=== PATIENT | female | born 2000 | race African-American/Black ===

== ENCOUNTER 2021-01-13 09:26 | Emergency (ER) | payer OTHER ==
[2021-01-13 10:54] LABS: #Eosinphils 0.1 10x3/uL (0.0-0.5); #Monocytes 1.3 10x3/uL (0.0-1.1); #Neutrophils 10.2 10x3/uL (1.5-8.4); %Basophils 0.3 % (0.0-2.0); %Monocytes 10.2 % (0.0-10.0); %Neutrophils 81.8 % (40.0-75.0); Hemoglobin 14.4 g/dL (12.0-15.5); Mean Corpuscular Hemoglobin 27.4 pg (27.0-33.0); Mean Corpuscular Volume 88.2 fl (81.6-98.3); Mean Platelet Volume 11.4 fl (7.4-10.4); Platelet Count 234 10x3/uL (150-450); RBC Distribution Width 15.9 % (11.5-14.5); Red Blood Cell (RBC) Count 5.26 10x6/uL (3.90-5.03); White Blood Cell (WBC) Count 12.5 10x3/uL (3.5-10.5)
[2021-01-13 11:22] LABS: ALT (SGPT) 26 U/L (8-55); AST (SGOT) 17 U/L (5-34); Albumin 3.7 g/dL (3.5-5.0); Alkaline Phosphatase 148 U/L (40-110); Anion Gap 10 mmol/L (10-20); BUN (Urea Nitrogen) 5 mg/dL (7.0-18.7); Bilirubin, Total 0.9 mg/dL (0.2-1.2); CK (CPK) 66 U/L (29-168); CRP (Inflammatory) 2.38 mg/dL (= or < 0.5); Calc. Creatinine Clearance 0 mL/min (70-130); Calcium 10.4 mg/dL (7.8-10.44); Carbon Dioxide 23 mmol/L (22-29); Chloride 112 mmol/L (98-107); Glucose 88 mg/dL (70-105); Protein, Total 6.7 g/dL (6.0-8.3); Sodium 141 mmol/L (136-145)
[2021-01-13 12:06] LABS: Bilirubin Neg (Negative); Blood, Urine Negative (Negative); Clarity Slightly Cloudy (Clear); Glucose, Urine (Dipstick) 50 mg/dL (Negative); Ketone, Urine Negative (Negative); Leukocyte 25 (Negative); Nitrite Positive (Negative); Protein, Urine (Dipstick) Negative (Neg-Trace); Urobilinogen Normal mg/dL (Less than 2)
[2021-01-13 12:10] LABS: Pregnancy Test - Urine (BHCG) Negative (Negative); Pregu Control Background? CLEAR/WHITE (CLR/WHITE); Pregu Control Bar Appear? YES (CONTROL BAR)
[2021-01-13 12:20] LABS: Bacteria/HPF 3+ HPF (None Seen); RBC/HPF 0-3 HPF (0-3); Squamous Epithelial 0-3 HPF (0-3)
[2021-01-13] MEDS ORDERED: Ketorolac Tromethamine 30 MG/ML VIAL ONE (12:31)
== END 2021-01-13 13:31 | disposition home or self-care (01) ==
LOC: CSHERS 09:26
DX: N39.0 Urinary tract infection, site not specified (principal); J45.909 Unspecified asthma, uncomplicated; F17.210 Nicotine dependence, cigarettes, uncomplicated
CPT/HCPCS: 80053; 81003; 81015; 81025; 82550; 85025; 86140; 96374; J1885

== ENCOUNTER 2021-01-15 22:33 | Emergency (ER) | payer OTHER ==
[2021-01-16] MEDS ORDERED: Ketorolac Tromethamine 30 MG/ML VIAL ONE (00:10)
== END 2021-01-16 00:34 | disposition home or self-care (01) ==
LOC: CSHERS 22:33
DX: G56.03 Carpal tunnel syndrome, bilateral upper limbs (principal); F17.210 Nicotine dependence, cigarettes, uncomplicated
CPT/HCPCS: 96372; 99281; J1885

== ENCOUNTER 2021-11-29 18:26 | Emergency (ER) | payer OTHER | END 2021-11-29 20:32 | disposition home or self-care (01) | LOC: CSHERS 18:26 | DX: S00.412A Abrasion of left ear, initial encounter (principal); F17.210 Nicotine dependence, cigarettes, uncomplicated; X58.XXXA Exposure to other specified factors, initial encounter | CPT/HCPCS: 99282 ==

== ENCOUNTER 2022-04-04 17:58 | Emergency (ER) | payer OTHER ==
[2022-04-04 18:48] LABS: #Basophils 0.1 10x3/uL (0.0-0.2); #Eosinphils 0.1 10x3/uL (0.0-0.5); #Monocytes 1.3 10x3/uL (0.0-1.1); %Basophils 0.5 % (0.0-2.0); %Eosinophils 0.4 % (0.0-6.0); %Lymphocytes 12.7 % (18.0-47.0); %Monocytes 9.9 % (0.0-10.0); %Neutrophils 75.4 % (40.0-75.0); Hemoglobin 11.9 g/dL (12.0-15.5); Mean Corpuscular HGB CONC 31.6 g/dL (32.0-36.0); Mean Corpuscular Hemoglobin 24.6 pg (27.0-33.0); Mean Corpuscular Volume 77.8 fl (81.6-98.3); Mean Platelet Volume 10.1 fl (7.4-10.4); Platelet Count 258 10x3/uL (150-450); RBC Distribution Width 19.7 % (11.5-14.5); Red Blood Cell (RBC) Count 4.83 10x6/uL (3.90-5.03); White Blood Cell (WBC) Count 13.3 10x3/uL (3.5-10.5)
[2022-04-04 18:55] LABS: BHCG - Serum Negative (NEGATIVE); Pregs Control Background? CLEAR/WHITE (CLR/WHITE); Pregs Control Bar Appear? YES (CONTROL BAR)
[2022-04-04 19:03] LABS: ALT (SGPT) 31 U/L (8-55); AST (SGOT) 20 U/L (5-34); Albumin 3.6 g/dL (3.5-5.0); Alkaline Phosphatase 105 U/L (40-110); Anion Gap 9 mmol/L (10-20); BUN (Urea Nitrogen) 4 mg/dL (7.0-18.7); Bilirubin, Total 0.7 mg/dL (0.2-1.2); Calc. Creatinine Clearance 0 mL/min (70-130); Calcium 10.2 mg/dL (7.8-10.44); Carbon Dioxide 26 mmol/L (22-29); Chloride 109 mmol/L (98-107); Estimated GFR 110; Globulin 2.2 g/dL (2.4-3.5); Glucose 108 mg/dL (70-105); Lipase 41 U/L (8-78); Potassium 3.9 mmol/L (3.5-5.1); Protein, Total 5.8 g/dL (6.0-8.3); Sodium 140 mmol/L (136-145)
[2022-04-04] MEDS ORDERED: Ondansetron ODT 4 MG TAB ONE (19:08)
[2022-04-04] MEDS ORDERED: Dicyclomine 20 MG TAB ONE (19:09)
[2022-04-04] MEDS ORDERED: Dicyclomine 20 MG/2 ML VIAL ONE (19:17)
[2022-04-04 19:56] LABS: Bilirubin Neg (Negative); Blood, Urine Negative (Negative); Clarity Clear (Clear); Glucose, Urine (Dipstick) 50 mg/dL (Negative); Ketone, Urine Negative (Negative); Leukocyte 500 (Negative); Nitrite Negative (Negative); Protein, Urine (Dipstick) Negative (Neg-Trace); Urobilinogen Normal mg/dL (Less than 2)
[2022-04-04 20:03] LABS: Bacteria/HPF Rare-Few HPF (None Seen); RBC/HPF 0-3 HPF (0-3)
== END 2022-04-04 20:30 | disposition home or self-care (01) ==
LOC: CSHERS 17:58
DX: N39.0 Urinary tract infection, site not specified (principal); F17.210 Nicotine dependence, cigarettes, uncomplicated
CPT/HCPCS: 36415; 80053; 81003; 81015; 83690; 84703; 85025; 87077; 87086; 96372; 99284; Q0162

== ENCOUNTER 2023-04-20 19:48 | Emergency (ER) | payer OTHER ==
[2023-04-20 20:46] LABS: #Eosinphils 0.1 10x3/uL (0.0-0.5); #Monocytes 0.9 10x3/uL (0.0-1.1); #Neutrophils 8.5 10x3/uL (1.5-8.4); %Basophils 0.4 % (0.0-2.0); %Eosinophils 1.2 % (0.0-6.0); %Lymphocytes 10.9 % (18.0-47.0); %Monocytes 8.1 % (0.0-10.0); %Neutrophils 78.7 % (40.0-75.0); Hematocrit 36.5 % (34.9-44.5); Hemoglobin 10.6 g/dL (12.0-15.5); Mean Corpuscular Hemoglobin 22.4 pg (27.0-33.0); Mean Corpuscular Volume 77.2 fl (81.6-98.3); Mean Platelet Volume 10.7 fl (7.4-10.4); Platelet Count 296 10x3/uL (150-450); RBC Distribution Width 19.7 % (11.5-14.5); Red Blood Cell (RBC) Count 4.73 10x6/uL (3.90-5.03); White Blood Cell (WBC) Count 10.8 10x3/uL (3.5-10.5)
[2023-04-20 20:50] LABS: BHCG - Serum Negative (NEGATIVE); Pregs Control Bar Appear? YES (CONTROL BAR)
[2023-04-20 20:51] LABS: Pregs Control Background? CLEAR/WHITE (CLR/WHITE)
[2023-04-20 20:58] LABS: ALT (SGPT) 17 U/L (8-55); AST (SGOT) 12 U/L (5-34); Albumin 3.8 g/dL (3.5-5.0); Alkaline Phosphatase 105 U/L (40-110); Anion Gap 11 mmol/L (10-20); BUN (Urea Nitrogen) 9 mg/dL (7.0-18.7); Bilirubin, Total 0.5 mg/dL (0.2-1.2); CK (CPK) 41 U/L (29-168); Calc. Creatinine Clearance 0 mL/min (70-130); Calcium 11.2 mg/dL (7.8-10.44); Carbon Dioxide 23 mmol/L (22-29); Chloride 112 mmol/L (98-107); Estimated GFR 97; Globulin 2.8 g/dL (2.4-3.5); Glucose 128 mg/dL (70-105); Magnesium 2.2 mg/dL (1.6-2.6); Potassium 3.1 mmol/L (3.5-5.1); Protein, Total 6.6 g/dL (6.0-8.3); Sodium 143 mmol/L (136-145)
[2023-04-20] MEDS ORDERED: Ketorolac Tromethamine 30 MG/ML VIAL ONE (21:24)
[2023-04-20] MEDS ORDERED: Potassium Chloride 20 MEQ TAB ONE (21:24)
== END 2023-04-20 21:49 | disposition home or self-care (01) ==
LOC: CSHERS 19:48
DX: M79.662 Pain in left lower leg (principal); I10 Essential (primary) hypertension; E87.6 Hypokalemia; F17.210 Nicotine dependence, cigarettes, uncomplicated; X50.1XXA Overexertion from prolonged static or awkward postures, initial encounter; Y92.69 Other specified industrial and construction area as the place of occurrence of the external cause
CPT/HCPCS: 36415; 80053; 82550; 83735; 84703; 85025; 96372; J1885

== ENCOUNTER 2025-06-10 08:16 | Outpatient (CLI) | payer OTHER ==
[2025-06-10] MEDS ORDERED: Iopamidol 370 76% 100 ML VIAL ONE (10:32)
== END 2025-06-10 08:17 | disposition home or self-care (01) ==
LOC: CSHCT 08:16
DX: E31.21 Multiple endocrine neoplasia [MEN] type I (principal); K76.0 Fatty (change of) liver, not elsewhere classified; E27.8 Other specified disorders of adrenal gland; N20.0 Calculus of kidney; N28.1 Cyst of kidney, acquired
CPT/HCPCS: 74178

== ENCOUNTER 2025-07-01 09:32 | Emergency (ER) | payer OTHER ==
[2025-07-01 10:02] LABS: #Basophils 0.04 10x3/uL (0.0-0.2); #Eosinophils 0.04 10x3/uL (0.0-0.5); #Monocytes 0.82 10x3/uL (0.0-1.1); #Neutrophils 7.41 10x3/uL (1.5-8.4); %Basophils 0.4 % (0.0-2.0); %Eosinophils 0.4 % (0.0-6.0); %Lymphocytes 12.8 % (18.0-47.0); %Monocytes 8.5 % (0.0-10.0); %Neutrophils 76.6 % (40.0-75.0); Hematocrit 39.5 % (34.9-44.5); Hemoglobin 12.4 g/dL (12.0-15.5); Mean Corpuscular Hemoglobin 26.6 pg (27.0-33.0); Mean Corpuscular Volume 84.8 fL (81.6-98.3); Platelet Count 268 10x3/uL (150-450); Red Blood Cell (RBC) Count 4.66 10x6/uL (3.90-5.03); White Blood Cell (WBC) Count 9.68 10x3/uL (3.5-10.5)
[2025-07-01] MEDS ORDERED: Ketorolac Tromethamine 30 MG (1 mL) VIAL ONE (10:12)
[2025-07-01 10:19] LABS: BHCG - Serum Negative (NEGATIVE); Pregs Control Background? CLEAR/WHITE (CLR/WHITE); Pregs Control Bar Appear? YES (CONTROL BAR)
[2025-07-01 10:21] LABS: ALT (SGPT) 15 U/L (Less than 34); AST (SGOT) 16 U/L (11-34); Albumin 3.6 g/dL (3.1-4.5); Alkaline Phosphatase 122 U/L (40-110); Anion Gap 12 mmol/L (10-20); BUN (Urea Nitrogen) 8 mg/dL (7.0-18.7); Bilirubin, Total 0.6 mg/dL (0.3-1.2); Calc. Creatinine Clearance 0 mL/min (70-130); Calcium 11.7 mg/dL (7.8-10.44); Carbon Dioxide 25 mmol/L (22-29); Chloride 109 mmol/L (98-107); Globulin 3.2 g/dL (2.4-3.5); Glucose 144 mg/dL (70-105); Magnesium 2.0 mg/dL (1.6-2.6); Potassium 2.9 mmol/L (3.5-5.1); Sodium 143 mmol/L (136-145)
[2025-07-01 10:32] LABS: Glucose, Urine (Dipstick) 250 mg/dL (Negative); Leukocyte 500 (Negative); Protein, Urine (Dipstick) 30 mg/dl (Neg-Trace); Specific Gravity, Urine 1.015 (1.005-1.030)
[2025-07-01] MEDS ORDERED: Potassium Chloride 20 MEQ (100 mL) BAG ONE (11:02)
[2025-07-01 11:06] LABS: Bacteria/HPF 2+ HPF (None Seen); CAUTI Indications for Culture Pelvic or flank pain; RBC/HPF 0-3 HPF (0-3)
[2025-07-01 11:07] LABS: Urine Culture Reflex Yes Yes
== END 2025-07-01 14:03 | disposition short-term general hospital (02) ==
LOC: CSHERS 09:32
DX: E87.6 Hypokalemia (principal); E83.52 Hypercalcemia; R79.89 Other specified abnormal findings of blood chemistry; E11.9 Type 2 diabetes mellitus without complications; F17.210 Nicotine dependence, cigarettes, uncomplicated; Z75.3 Unavailability and inaccessibility of health-care facilities
CPT/HCPCS: 80053; 81001; 83735; 84703; 85025; 87086; 93005; 96374; 96375; J1885; J3480